=== PATIENT | male | born 1975 | race Caucasian/White ===

== ENCOUNTER 2020-09-26 18:17 | Emergency (ER) | payer OTHER ==
[2020-09-27 10:08] LABS: SARS-CoV-2 NAA Not Detected (Not Detected)
== END 2020-09-26 19:16 | disposition home or self-care (01) ==
LOC: JVIRT 18:17
DX: Z11.52 Encounter for screening for COVID-19 (principal); J06.9 Acute upper respiratory infection, unspecified
CPT/HCPCS: C9803; G2251-GT; Q3014-GT; U0003; U0005